=== PATIENT | female | born 1985 | race African-American/Black ===

== ENCOUNTER 2018-07-19 11:12 | Emergency (ER) | payer OTHER ==
[2018-07-19] MEDS: LEVALBUTEROL (NEB) 1.25 MG/0.5 ML AMP INH (11:35)
[2018-07-19] MEDS: IPRATROPIUM (NEB) 0.5 MG/2.5 ML AMP NEB (11:36)
[2018-07-19] MEDS: DEXAMETHASONE 4 MG/ML 1 ML INJ IM (11:48)
== END 2018-07-19 13:13 | disposition home or self-care (01) ==
LOC: FTE 11:12
DX: J06.9 Acute upper respiratory infection, unspecified (principal); J04.0 Acute laryngitis; R07.9 Chest pain, unspecified; Z87.891 Personal history of nicotine dependence
CPT/HCPCS: 71045; 93005; 94664; 96372; 99284-25

== ENCOUNTER 2019-06-01 10:05 | Emergency (ER) | payer OTHER ==
[2019-06-01 11:21] LABS: ADD MAN DIFF? NO
[2019-06-01 11:23] LABS: BASOPHIL # 0.1 10^3/ul (0.0-0.1); BASOPHILS % 0.7 % (0.0-2.0); EOSINOPHILS # 0.1 10^3/ul (0.0-0.5); EOSINOPHILS % 1.9 % (0.0-7.0); HEMOGLOBIN 14.6 g/dl (12.0-16.0); LYMPHOCYTES # 1.9 10^3/ul (0.8-2.9); LYMPHOCYTES % 26.5 % (15.0-51.0); MEAN CORPUSCULAR HEMOGLOBIN 28.7 pg (29.0-33.0); MEAN CORPUSCULAR HGB CONC 33.2 g/dl (32.0-37.0); MEAN CORPUSCULAR VOLUME 86.4 fl (82.0-101.0); MONOCYTE # 0.3 10^3/ul (0.3-0.9); MONOCYTES % 4.7 % (0.0-11.0); NEUTROPHIL # 4.7 10^3/ul (1.6-7.5); NEUTROPHILS % 65.9 % (39.0-77.0); PLATELET COUNT 349 10^3/UL (140-415); RED BLOOD COUNT 5.09 10^6/ul (4.20-5.40); RED CELL DISTRIBUTION WIDTH 12.3 % (11.5-14.5)
[2019-06-01 11:23] LABS: WHITE BLOOD COUNT 7.2 10^3/ul (4.8-10.8)
[2019-06-01 11:25] LABS: ADD UMIC YES; UR ASCORBIC ACID NEGATIVE (NEGATIVE); UR BACTERIA FEW /HPF (NONE SEEN); UR BILIRUBIN (Dip) NEGATIVE (NEGATIVE); UR BLOOD (Dip) 1+ mg/dL (NEGATIVE); UR CLARITY CLEAR (CLEAR); UR COLOR STRAW (YELLOW); UR GLUCOSE (Dip) NEGATIVE (NEGATIVE); UR KETONES (Dip) NEGATIVE (NEGATIVE); UR LEUKOCYTE ESTERASE (Dip) TRACE Leu/ul (NEGATIVE); UR NITRITE (Dip) NEGATIVE (NEGATIVE); UR RBC 1 /HPF (0-5); UR SPECIFIC GRAVITY (Dip) 1.009 (1.003-1.030); UR SQUAMOUS EPITHELIAL CELL FEW /HPF (FEW); UR TOTAL PROTEIN (Dip) NEGATIVE (NEGATIVE); UR UROBILINOGEN (Dip) NEGATIVE (NEGATIVE); UR WBC 1 /HPF (0-5)
[2019-06-01] MEDS: KETOROLAC 60 MG INJ IM (11:33)
[2019-06-01 11:42] LABS: INR 0.96; PROTIME 12.9 Sec (11.9-14.9)
[2019-06-01 11:43] LABS: PARTIAL THROMBOPLASTIN TIME 28.3 Sec (23.0-35.0)
[2019-06-01 11:44] LABS: ANION GAP 7 (5-13); BLOOD UREA NITROGEN 11 mg/dl (7-20); CALCIUM 9.7 mg/dl (8.4-10.2); CARBON DIOXIDE 28 mmol/L (21-31); CHLORIDE 105 mmol/L (97-110); Estimated GFR > 60 mL/min (>60); GLUCOSE 90 mg/dl (70-220); POTASSIUM 3.9 mmol/L (3.5-5.1); SODIUM 140 mmol/L (135-144)
[2019-06-01 11:54] LABS: TROPONIN-I < 0.012 ng/ml (0.000-0.120)
== END 2019-06-01 12:48 | disposition home or self-care (01) ==
LOC: FTE 10:05
DX: R51 Headache (principal); R07.89 Other chest pain; Z87.891 Personal history of nicotine dependence
CPT/HCPCS: 36415; 70450; 71046; 80048; 81001; 81025; 84484; 85025; 85610; 85730; 93005; 96372; 99285-25